=== PATIENT | male | born 2000 | race Caucasian/White ===

== ENCOUNTER 2021-07-20 04:13 | Emergency (ER) | payer SELFPAY ==
[~2021-07-20] VITALS: Ht 198.1 cm; Wt 68.0 kg
[2021-07-20] MEDS ORDERED: EPINEPHrine HCL 1 MG/ML VIAL IM ONE (04:15)
[2021-07-20] MEDS ORDERED: DIPHENHYDRAMINE INJ 50 MG/ML VIAL IM ONE (04:15)
[2021-07-20] MEDS ORDERED: methylPREDNISolone SOD SUCC/PF 62.5 MG/ML VIAL IM ONE (04:15)
[2021-07-20] MEDS ORDERED: FAMOTIDINE PF 20 MG/2 ML VIAL IVP ONE (04:15)
--- NOTE | 2021-07-20 04:15 | NUR ---
Placed in room 6 . Placed on second butler, blood pressure machine and pulse oximeter. To gown for exam. Side rails up.
--- NOTE | 2021-07-20 04:16 | NUR ---
DR. CARPIO AT BEDSIDE
--- NOTE | 2021-07-20 04:17 | NUR ---
RT CALLED TO BEDSIDE
[2021-07-20] MEDS ORDERED: RACEPINEPHRINE HCL 0.5 ML VIAL.NEB INH ONE ×2 (04:18→04:30)
[2021-07-20] MEDS ORDERED: DIPHENHYDRAMINE INJ 50 MG/ML VIAL ONE (04:20)
[2021-07-20] MEDS ORDERED: methylPREDNISolone SOD SUCC/PF 62.5 MG/ML VIAL ONE (04:21)
[2021-07-20] MEDS ORDERED: DIPHENHYDRAMINE INJ 50 MG/ML VIAL IVP ONE (04:30)
[2021-07-20] MEDS ORDERED: IPRATROPIUM/ALBUTEROL SULFATE 3 ML AMPUL.NEB (DUONEB) INH ONE (04:30)
[2021-07-20] MEDS ORDERED: METHYLPREDNISOLONE SOD SUCC 40 MG/ML VIAL IVP ONE (04:30)
[2021-07-20] MEDS ORDERED: ONDANSETRON HCL 4 MG/2 ML VIAL IVP ONE (04:30)
--- NOTE | 2021-07-20 04:37 | NUR ---
UNABLE TO OBTAIN BP- WILL CONTINUE TO ATTEMPT BP.
[2021-07-20] MEDS ORDERED: NACL 0.9% 1,000 ML IV ONE (04:45)
[2021-07-20] MEDS ORDERED: ONDANSETRON HCL 4 MG/2 ML VIAL ONE (04:45)
[2021-07-20] MEDS ORDERED: MAGNESIUM SULFATE 1 GM/2 ML VIAL IVP ONE (04:45)
[2021-07-20] MEDS ORDERED: MAGNESIUM SULFATE 1 GM/2 ML VIAL ONE (04:46)
[2021-07-20] MEDS ORDERED: EPINEPHrine HCL 1 MG/ML VIAL ONE (04:48)
[2021-07-20 04:57] LABS: BASOPHILS # (AUTO) 0.2 K/uL (0.0-0.2); BASOPHILS % (AUTO) 2.8 % (0.0-2.0); EOSINOPHILS # (AUTO) 0.1 K/uL (0.0-0.4); EOSINOPHILS % (AUTO) 1.5 % (0.0-4.0); HEMATOCRIT 42.8 % (36-54); HEMOGLOBIN 14.7 g/dL (14.0-18.0); LYMPHOCYTES % (AUTO) 33.2 % (20.5-51.5); MEAN CORPUSCULAR HEMOGLOBIN 31 pg (27-31); MEAN CORPUSCULAR HGB CONC 34 % (32-36); MEAN CORPUSCULAR VOLUME 89 fL (79.0-98.0); MONOCYTES % (AUTO) 11.2 % (1.7-9.3); NEUTROPHILS # (AUTO) 4.7 K/uL (1.8-7.7); NEUTROPHILS % (AUTO) 51.3 % (40.0-70.0); PLATELET COUNT (AUTO) 315 K/uL (130-430); RED BLOOD CELL COUNT(AUTO) 4.79 MIL/uL (4.2-6.2); RED CELL DISTRIBUTION WIDTH 13.3 % (9.0-15.0); WHITE BLOOD COUNT (AUTO) 9.1 K/uL (4.8-10.8)
--- NOTE | 2021-07-20 05:06 | NUR ---
Swabbed patient for Covid and sent it to the lab.
[2021-07-20 05:10] LABS: ANION GAP 13 (5-15); CALCIUM 8.5 mg/dL (8.4-11.0); CHLORIDE 101 mmol/L (98-107); CREATININE 0.85 mg/dL (0.55-1.30); GLUCOSE 147 mg/dL (70-99); POTASSIUM 3.3 mmol/L (3.5-5.1); SODIUM SERUM 140 mmol/L (136-145); UREA NITROGEN, BLOOD 18 mg/dL (8-21)
[2021-07-20 05:15] LABS: ALANINE AMINOTRANSFERASE 14 U/L (12-78); ALBUMIN 4.2 g/dL (3.4-4.8); ASPARTATE AMINOTRANSFERASE 23 U/L (10-37); TOTAL BILIRUBIN 0.6 mg/dL (0.0-1.0)
[2021-07-20 05:17] LABS: ALCOHOL, BLOOD < 3 mg/dL (<10); GFR AFRICAN AMERICAN 146 mL/min (>90)
--- NOTE | 2021-07-20 05:56 | NUR ---
Admit bed requested Patient will be admitted to care of Maul[facility] Good Admitted to unit. Tele Diagnosis Asthma exacerbation Inpatient (Yes or No) yes Observation (Yes or No) No Orientation concerns or request close to nursing station (Yes or No) No Covid Status pending On vent or bipap NO Isolation requirements None Needs a sitter No From Home (Yes or if No enter name of facility) Home Requires Dialysis (Yes or No) No Med Rec Completed (Yes of No) Yes
[2021-07-20] MEDS ORDERED: DIPHENHYDRAMINE INJ 50 MG/ML VIAL IVP PRN (06:00)
--- NOTE | 2021-07-20 07:20 | NUR ---
Pt in bed #6 with family at bedside. Pt is A&Ox4. Connected to pvc monitor and VSS. Pt has no c/o. Skin intact. No sob no chest pain and denies n/v. Pt is aware Dr. Winter wants to admit him but pt states pt he does not want to be admitted and wants to go home. Dr. Winter made aware and states he will talk with pt. Bed in lowest position.
[2021-07-20 07:47] VITALS: BP_SYST 123
--- NOTE | 2021-07-20 08:26 | NUR ---
Dr. Winter is at bedside explaining the reason why pt is getting admitted and the benefits. Pt states he wants to think about it. VSS. Bed in lowest position.
--- NOTE | 2021-07-20 08:39 | NUR ---
CONSULTATION PAGED REASON FOR CONSULTATION:ANAPHALAXIS WAS CONSULT CALLED?Y PERSON WHO WAS NOTIFIED:WAI CONSULTING PHYSICIAN:MICHAEL GONCALVES [employer] SPECIALTY:-PULMONARY [employer] PHONE NUMBER:[phone] REQUESTING PHYSICIAN:CLIFTON GARCIA
--- NOTE | 2021-07-20 09:41 | NUR ---
After Dr. Winter and myself talked with pt explainig the reasons for admission and the benefits. Pt still refused to stay and wanted to leave home. Pt also explained the risks of leaving against medical advice and pt still chose to go home and refused to be admitted. All questions and concerns have been addresses with no further questions by pt. Pt is A&Ox4. Ambulatory with steady gait. VSS. Pt signed AMA form and left building.
--- NOTE | 2021-07-20 09:43 | NUR ---
Patient does not wish to proceed with medical care recommended by Dr. Winter. Patient given information related to possible complications, up to and including , which could occur as a result of leaving hospital at this time. Patient verbalizes understanding of risks involved leaving against medical advice. Patient has signed AMA form.
== END 2021-07-20 09:41 | disposition left against medical advice (07) ==
LOC: SED 04:13 → SMU 05:49 → UNDOADMIN 05:49 → SMU 07:49 → STU 07:49 → SED 09:41 → STU 10:37
DX: T78.2XXA Anaphylactic shock, unspecified, initial encounter (principal); Z91.010 Allergy to peanuts; Z20.822 Contact with and (suspected) exposure to COVID-19
CPT/HCPCS: 36415; 36600; 71045; 80053; 82803; 82962; 85025; 87426; 94640; 96361; 96372; 96374; 96375; 99291; G0482; J0171; J1200; J2405; J2930; J3475; J3490; J7030; 94760; 99285